=== PATIENT | female | born 1965 | race Caucasian/White ===

== ENCOUNTER 2019-05-02 02:03 | Emergency (ER) | payer OTHER ==
--- NOTE | 2019-05-02 02:27 | NUR ---
CAME OUT TO WAITING ROOM PT WAS INFORMING REGISTRATION THAT HER KNEE POPPED BACK INTO PLACE SPONTANEOUSLY AND THAT SHE WAS GOING HOME. WHEN THIS NURSE ASKED IF THE PT WAS CERTAIN ABOUT HER DECISION, AND ASKED IF THE PT WANTED TO BE EVALUATED TO BE CERTAIN HER KNEE WAS IN PLACE, THE PT REFUSED CARE AND LEFT THE ED WAITING ROOM AMBULATORY.
--- OUTSIDE RECORDS SUMMARY | 2019-05-02 17:01 | XMS REPORT | Continuity of Care Document ---
Author Organization Unknown Address Unknown Allergies Active Description Code Type Severity Reaction Onset Reported/Identified Relationship to Patient Clinical Status Yes Iodinated Contrast- Oral and IV Dye Iodinated Contrast- Oral and IV Dye Drug Allergy Unknown VOMITING 05/22/2018 Medications There is no data. Problems There is no data. Procedures There is no data. Results Test Result Range URINALYSIS, ROUTINE - 09/27/18 13:57 UA LEUKOCYTE ESTERASE DIPSTICK NEGATIVE NEGATIVE UA NITRITE DIPSTICK NEGATIVE NEGATIVE UA PROTEIN DIPSTICK NEGATIVE NEGATIVE UA GLUCOSE DIPSTICK NEGATIVE NEGATIVE UA KETONE DIPSTICK NEGATIVE NEGATIVE UA UROBILINOGEN DIPSTICK NORMAL NORMAL UA BILIRUBIN DIPSTICK NEGATIVE NEGATIVE UA BLOOD DIPSTICK NEGATIVE NEGATIVE UA SPECIFIC GRAVITY 1.015 1.015-1.025 UR PH 6.0 5.0-7.0 CBC W/DIFF - 09/27/18 14:11 BASOPHIL # 0.1 k/cumm 0.0-0.2 BASOPHIL % 0.8 % 0-1 EOSINOPHIL # 0.1 k/cumm 0.1-0.5 EOSINOPHIL % 1.6 % 2-4 GRANULOCYTE # 5.2 k/cumm 2.0-9.0 GRANULOCYTE % 70.2 % 50-75 LYMPHOCYTE # 1.6 k/cumm 1.0-4.0 LYMPHOCYTE % 21.1 % 20-30 MEAN CELL HGB 29.8 pg 27.0-33.0 MEAN CELL HGB CONCENTRATION 33.1 g/dL 32.0-37.0 MEAN CELL VOLUME 90.1 fl 80.0-100.0 MONOCYTE # 0.5 k/cumm 0.1-1.0 MONOCYTE % 6.0 % 4-6 MEAN PLATELET VOLUME 10.4 fl 8.5-10.9 RED BLOOD CELL 5.06 m/cumm 4.00-6.00 RED CELL DISTRIBUTION WIDTH 12.6 % 11.0-15.6 WHITE BLOOD CELL 7.5 k/cumm 5.0-10.0 HEMOGLOBIN 15.1 gm/dL 12.0-16.0 HEMATOCRIT 45.6 % 37.0-47.0 NRBC % 0.0 /100 WBC 0.0-0.0 PLATELET COUNT 215 k/cumm 150-400 IMMATURE GRANULOCYTE % 0.3 % 0.0-0.6 IMMATURE GRANULOCYTE # 0.02 k/cumm 0.00-0.09 METABOLIC PANEL, BASIC - 09/27/18 14:11 POTASSIUM 3.7 mmol/L 3.5-5.3 EST GFR (MDRD) > 60 mL/min > 59 ANION GAP 9 mmol/L 5-15 EST CrCl (CG) > 60 mL/min > 59 GLUCOSE 93 mg/dL 70-99 CALCIUM 9.4 mg/dL 8.5-10.1 BLOOD UREA NITROGEN 12 mg/dL 7-20 CREATININE 0.7 mg/dL 0.6-1.0 SODIUM 143 mmol/L 135-148 CHLORIDE 105 mmol/L 98-110 CARBON DIOXIDE 29 mmol/L 21-32 Radiology Report from [facility] on 09/27/2018 15:51:00 PATIENT NAME: MASSIEL CORTES UNIT NO: [id number] EXAMS: CPT CODE: [id number] CT ABD/PELVIS W/O CONTRAST 40095 REASON FOR EXAM: R flank pain TIME OF EXAM: 09/27/2018 3:10 PM COMPARISON: None TECHNIQUE: Routine helical noncontrast-enhanced CT images were obtained through the abdomen and pelvis. Postprocessed coronal and sagittal reformats were reviewed. FINDINGS: Included Lung Bases: There is no consolidation or acute abnormality. CT Abdomen: The liver, spleen, kidneys, adrenal glands, and pancreas all have a normal noncontrasted appearance. There is no mesenteric or retroperitoneal adenopathy. The appendix is not well seen, however, there is no inflammatory change in the region of the appendix to suggest appendicitis. The bowel loops are nondilated. There is no free fluid or free air. No focal bony abnormality is seen. CT Pelvis: Ureters and bladder are within normal limits. There is no free air, free fluid, loculated collection, or adenopathy in the pelvis. The soft tissue structures are age appropriate. Multilevel degenerative changes seen in the visualized spine. No focal aggressive bone lesion is seen. Calcific atherosclerosis of aorta without evidence of aneurysm. IMPRESSION: 1. No acute abnormality in the abdomen or pelvis. 2. No renal calculi or hydronephrosis bilaterally. I have personally reviewed these images and corrected the resident physician's interpretation if necessary. [facility] NAME: MASSIEL CORTES [address] HP: [phone] AGE: 53 S:[place] [address] : 1965 LOC: [facility] PHYS: Efrem Santana MD PHONE #: [phone] EXAM DATE: 09/27/2018 STATUS: REG ER FAX #: [phone] A#: [id number] U#: [id number] PAGE 1 Signed Report (CONTINUED) PATIENT NAME: MASSIEL CORTES UNIT NO: [id number] EXAMS: CPT CODE: [id number] CT ABD/PELVIS W/O CONTRAST 51092 <Continued> at 1546 RESIDENT: ELOY QUEEN MD Reported and signed by: REINA MELCHOR MD CC: TECHNOLOGIST: LUBNA ADHIKARI TRANSCRIBED DATE/Time: 09/27/2018 1546 BY: KRYSTA EXAM COMPLETE DATE/TIME: [id number] 1510 D/TM:09/27/2018 (1551) [facility] NAME: MASSIEL CORTES [address] HP: [phone] AGE: 53 S:[place] [address] : 1965 LOC: W[facility] PHYS: Efrem Santana MD PHONE #: [phone] EXAM DATE: 09/27/2018 STATUS: REG ER FAX #: [phone] A#: [id number] U#: [id number] PAGE 2 Signed Report *Final Page* Encounters ACCT No. Visit Date/Time Discharge Status Pt. Type Provider Facility Loc./Unit Complaint [id number] 09/27/2018 12:58:00 09/27/2018 16:34:00 DIS Emergency Efrem Gage MD [facility] [id number] 05/22/2018 19:38:00 Document Registration
== END 2019-05-02 02:27 | disposition left against medical advice (07) ==
LOC: ER 02:06
DX: S89.91XA Unspecified injury of right lower leg, initial encounter (principal); X58.XXXA Exposure to other specified factors, initial encounter

== ENCOUNTER 2019-06-08 09:07 | Emergency (ER) | payer SELFPAY ==
[~2019-06-08] VITALS: Ht 165.1 cm; Wt 56.7 kg
--- NOTE | 2019-06-08 09:50 | ED EENT ---
History of Present Illness General Chief Complaint: General Problems/Pain Stated Complaint: EAR, NOSE, THROAT PAIN Nursing Triage Note: Pt ambulates to RM 6 with complaints of a headache, ear pain and intermittent diarrhea/gas x 2 months. Pt reports "throat feels like closing" since this morning and a productive cough x 24 hrs. Pt reports taking OTC allergy medication this am. Pt states she feels short of breath from throat pain but denies any chest pain. Pt is A&O x 4 at this time. Source: patient Exam Limitations: no limitations (OLIVIA MAYER) History of Present Illness Date Seen by Provider: Jun 08, 2019 Time Seen by Provider: 09:30 Initial Comments Pt presents with headache, sinus pressure, ear pain, and throat swelling that started today it is associated with a cough that started last night. She has been having diarrhea intermittently for about 2 months since she moved in town from [place]. She states her house has been wet and thinks there is a mold infection the house. She states she took 2 diphenhydramine this morning but it did not help very much. She has chronic pain from previous injuries to her back and neck for which she take Aleve . She reports having a hysterectomy due to cervical cancer in 2003. Timing/Duration: this morning Location: ear (R), ear (L), throat, facial Prearrival Treatment: over the counter meds (Diphenhydramine, aleve) Modifying Factors: Worse With Coughing Associated Symptoms: cough; No fever; nasal congestion/drainage, sinus infection; No sore throat (OLIVIA MAYER) Initial Comments Here with report of sinus pressure and sore throat. She states she has a funny taste in her mouth like when she had Salmonella poisoning several years ago from chicken. She states that she just knows that she is sick and needs some high-powered antibiotics. Does complain of some bloating but no diarrhea. No other indications of Salmonella. Associated Symptoms: No fever; sinus infection, sore throat (HERO CARRASCO MD) Allergies and Home Medications Allergies Coded Allergies: sulfamethoxazole (Verified Allergy, Mild, 06/08/19) trimethoprim (Verified Allergy, Mild, 06/08/19) Iodinated Contrast- Oral and IV Dye (Verified Allergy, Unknown, 06/08/19) Sulfa (Sulfonamide Antibiotics) (Verified Allergy, Unknown, 06/08/19) Home Medications Naproxen Sodium 220 Mg Capsule, 220 MG PO for BREAKTHROUGH PAIN, (Reported) Patient Home Medication List Home Medication List Reviewed: Yes (HERO CARRASCO MD) Review of Systems Review of Systems Constitutional: No chills, No diaphoresis, No fever; weakness Eyes: Denies Blurred Vision, Denies Decreased Acuity Ears: Denies Dizziness; Pain Nose: congestion, clear discharge Mouth: no symptoms reported Throat: denies pain; swelling; denies neck stiffness, denies painful swallowing, denies difficulty with fluids Respiratory: cough, phlegm (Clear), short of breath Cardiovascular: no symptoms reported Gastrointestinal: No abdominal pain; diarrhea, nausea; No vomiting Musculoskeletal: see HPI Skin: no symptoms reported Neurological: Anxiety, Headache Hematologic/Lymphatic: No Symptoms Reported Immunological/Allergic: no symptoms reported (OLIVIA MAYER) Nose: congestion, clear discharge Respiratory: cough, phlegm (Clear) (HERO CARRASCO MD) All Other Systems Reviewed Negative Unless Noted: Yes (HERO CARRASCO MD) Past [id number] Hx Past Med/Social Hx: Reviewed Nursing Past Med/Soc Hx (HERO CARRASCO MD) Patient Social History Alcohol Use: Rarely Uses Recreational Drug Use: Yes (THC) Smoking Status: Current Everyday Smoker Type Used: Cigarettes 2nd Hand Smoke Exposure: No Recent Foreign Travel: No Contact w/Someone Who Travel: No Recent Infectious Disease Expo: No Recent Hopitalizations: No Physical Abuse: No Sexual Abuse: No Mistreated: No Fear: No (OLIVIA MAYER) Seasonal Allergies Seasonal Allergies: No (OLIVIA MAYER) Past Medical History Surgeries: Yes Hysterectomy, Orthopedic, Tonsillectomy, Tubal Ligation Respiratory: No Cardiac: No Neurological: No 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 oz. 56.301454qi; BMI Method:Stated General Appearance: WD/WN, moderate distress Eyes: bilateral eye normal inspection, bilateral eye PERRL, bilateral eye EOMI Ears: bilateral ear auricle normal, bilateral ear canal normal, bilateral ear tenderness, bilateral ear TM dull Nose: normal inspection Mouth/Throat: normal mouth inspection, pharynx normal Neck: full range of motion, normal inspection Cardiovascular: regular rate, rhythm, no edema, no JVD, no murmur Respiratory: lungs clear, normal breath sounds, no respiratory distress, no accessory muscle use Gastrointestinal: normal bowel sounds, non tender, no organomegaly, no pulsatile mass Neurologic/Psychiatric: no motor/sensory deficits, alert, normal mood/affect, oriented x 3 Skin: normal color, warm/dry (OLIVIA MAYER) General Appearance: WD/WN, moderate distress (quite anxious) Mouth/Throat: normal mouth inspection, other (mild pharyngeal erythema) Neck: full range of motion, supple, normal inspection Cardiovascular: regular rate, rhythm, no edema Respiratory: lungs clear, normal breath sounds Gastrointestinal: non tender, soft, no organomegaly Neurologic/Psychiatric: alert, oriented x 3 Skin: normal color, warm/dry (HERO CARRASCO MD) Progress/Results/Core Measures Results/Orders Lab Results Laboratory Tests Test 06/08/19 09:40 06/08/19 10:16 Range/Units Urine Color YELLOW Urine Clarity CLEAR Urine pH 6 5-9 Urine Specific [place] 1.005 L 1.016-1.022 Urine Protein NEGATIVE NEGATIVE Urine Glucose (UA) NEGATIVE NEGATIVE Urine Ketones NEGATIVE NEGATIVE Urine Nitrite NEGATIVE NEGATIVE Urine Bilirubin NEGATIVE NEGATIVE Urine Urobilinogen NORMAL NORMAL MG/DL Urine Leukocyte Esterase NEGATIVE NEGATIVE Urine RBC (Auto) NEGATIVE NEGATIVE Urine RBC NONE /HPF Urine WBC NONE /HPF Urine Squamous Epithelial Cells 5-10 /HPF Urine Crystals NONE /LPF Urine Bacteria TRACE /HPF Urine Casts NONE /LPF Urine Mucus NEGATIVE /LPF Urine Culture Indicated NO Urine Opiates Screen NEGATIVE NEGATIVE Urine Oxycodone Screen NEGATIVE NEGATIVE Urine Methadone Screen NEGATIVE NEGATIVE Urine Propoxyphene Screen NEGATIVE NEGATIVE Urine Barbiturates Screen NEGATIVE NEGATIVE Ur Tricyclic Antidepressants Screen NEGATIVE NEGATIVE Urine Phencyclidine Screen NEGATIVE NEGATIVE Urine Amphetamines Screen NEGATIVE NEGATIVE Urine Methamphetamines Screen NEGATIVE NEGATIVE Urine Benzodiazepines Screen POSITIVE H NEGATIVE Urine Cocaine Screen NEGATIVE NEGATIVE Urine Cannabinoids Screen NEGATIVE NEGATIVE White Blood Count 7.1 4.3-11.0 10^3/uL Red Blood Count 4.55 4.35-5.85 10^6/uL Hemoglobin 13.9 11.5-16.0 G/DL Hematocrit 40 35-52 % Mean Corpuscular Volume 88 80-99 FL Mean Corpuscular Hemoglobin 31 25-34 PG Mean Corpuscular Hemoglobin Concent 35 32-36 G/DL Red Cell Distribution Width 12.9 10.0-14.5 % Platelet Count 174 130-400 10^3/uL Mean Platelet Volume 10.3 7.4-10.4 FL Neutrophils (%) (Auto) 70 42-75 % Lymphocytes (%) (Auto) 21 12-44 % Monocytes (%) (Auto) 6 0-12 % Eosinophils (%) (Auto) 2 0-10 % Basophils (%) (Auto) 1 0-10 % Neutrophils # (Auto) 5.0 1.8-7.8 X 10^3 Lymphocytes # (Auto) 1.5 1.0-4.0 X 10^3 Monocytes # (Auto) 0.4 0.0-1.0 X 10^3 Eosinophils # (Auto) 0.2 0.0-0.3 10^3/uL Basophils # (Auto) 0.1 0.0-0.1 10^3/uL Sodium Level 140 135-145 MMOL/L Potassium Level 3.8 3.6-5.0 MMOL/L Chloride Level 107 98-107 MMOL/L Carbon Dioxide Level 27 21-32 MMOL/L Anion Gap 6 5-14 MMOL/L Blood Urea Nitrogen 12 7-18 MG/DL Creatinine 0.80 0.60-1.30 MG/DL Estimat Glomerular Filtration Rate > 60 BUN/Creatinine Ratio 15 Glucose Level 112 H 70-105 MG/DL Calcium Level 9.3 8.5-10.1 MG/DL Corrected Calcium 9.1 8.5-10.1 MG/DL Total Bilirubin 0.5 0.1-1.0 MG/DL Aspartate Amino Transf (AST/SGOT) 24 5-34 U/L Alanine Aminotransferase (ALT/SGPT) 23 0-55 U/L Alkaline Phosphatase 83 40-136 U/L C-Reactive Protein High Sensitivity 0.08 0.00-0.50 MG/DL Total Protein 6.9 6.4-8.2 GM/DL Albumin 4.2 3.2-4.5 GM/DL (HERO CARRASCO MD) My Orders Orders - HERO CARRASCO MD Cbc With Automated Diff (06/08/19 10:01) Comprehensive Metabolic Panel (06/08/19 10:01) Hs C Reactive Protein (06/08/19 10:01) Drug Screen Stat (Urine) (06/08/19 10:01) Ua Culture If Indicated (06/08/19 10:01) (HERO CARRASCO MD) Vital Signs/I&O 06/08/19 09:29 Temp 97.1 Pulse 66 Resp 20 B/P (MAP) 204/104 (137) Pulse Ox 100 O2 Delivery Room Air (HERO CARRASCO MD) Blood Pressure Mean: 137 Progress Progress Note : Time: 09:35 Progress Note Pt seen by me. She presents with a headache, ear pain, and throat tightness that started this morning. She states having been feeling sick for 2 months with intermittent diarrhea. Her TM were dull and yellow upon inspection. Suspected OM and sinus infection. Spoke with Dr. Carrasco about the patient. (OLIVIA MAYER) Progress Note : Progress Note I have seen and evaluated the patient and agree with above except as indicated. Have directed the plan of care. Patient initially resistant to labs. Due to multiple presenting complaints, she has allowed for laboratory evaluation. CBC, CMP, UA and UDS ordered. Monitor patient. 1125: No acute findings. We will go ahead and treat for upper respiratory infection with azithromycin. Labs reviewed with the patient. She denies taking any other medicines except for Benadryl and Aleve. She does not admit to benzodiazepines. Discharged home with return precautions. Patient verbalize understanding instructions and agreement with plan. (HERO CARRASCO MD) Departure Impression Primary Impression: Upper respiratory infection, acute Disposition: HOME, SELF-CARE Condition: Stable Departure-Patient Inst. Decision time for Depature: 11:28 (HERO CARRASCO MD) Referrals: NO,LOCAL PHYSICIAN (PCP) Primary Care Physician Patient Instructions: Urinary Tract Infection, Adult (DC) Add. Discharge Instructions: All discharge instructions reviewed with patient and/or family. Voiced u nderstanding. Take medications as directed. You may use Benadryl/diphenhydramine 25 mg every 6 hours as needed for allergy symptoms although this will cause mouth drying. Drink plenty of fluids. Follow-up with your Dr. in a few days for recheck. Return for worse pain, fever, vomiting, weakness, breathing problems or other concerns as needed. Scripts Azithromycin (Azithromycin) 250 Mg Tablet 250 MG PO UD, #6 TAB TAKE 2 TABLETS ON DAY ONE THEN TAKE 1 TABLET DAILY FOR FOUR MORE DAYS Prov: HERO CARRASCO MD 06/08/19 Work/School Note: Local Medical Staff Listing [facility] Jun 08, 2019 09:50 HERO CARRASCO MD Jun 08, 2019 11:25
[2019-06-08 10:11] LABS: BILIRUBIN,URINE NEGATIVE (NEGATIVE); CLARITY,URINE CLEAR; COLOR,URINE YELLOW; GLUCOSE, URINE (UA) NEGATIVE (NEGATIVE); KETONES,URINE NEGATIVE (NEGATIVE); LEUKOCYTE ESTERASE ,URINE NEGATIVE (NEGATIVE); NITRITE,URINE NEGATIVE (NEGATIVE); PH,URINE 6 (5-9); PROTEIN,URINE NEGATIVE (NEGATIVE); UROBILINOGEN,URINE NORMAL (NORMAL)
[2019-06-08 10:21] LABS: BACTERIA,URINE TRACE /HPF
[2019-06-08 10:30] LABS: BASOPHILS # (AUTO) 0.1 10^3/uL (0.0-0.1); BASOPHILS % (AUTO) 1 % (0-10); EOSINOPHILS # (AUTO) 0.2 10^3/uL (0.0-0.3); EOSINOPHILS % (AUTO) 2 % (0-10); HEMATOCRIT 40 % (35-52); HEMOGLOBIN 13.9 G/DL (11.5-16.0); LYMPHOCYTES # (AUTO) 1.5 X 10^3 (1.0-4.0); LYMPHOCYTES % (AUTO) 21 % (12-44); MEAN CORPUSCULAR HEMOGLOBIN 31 PG (25-34); MEAN CORPUSCULAR HGB CONC 35 G/DL (32-36); MEAN CORPUSCULAR VOLUME 88 FL (80-99); MEAN PLATELET VOLUME 10.3 FL (7.4-10.4); MONOCYTES # (AUTO) 0.4 X 10^3 (0.0-1.0); MONOCYTES % (AUTO) 6 % (0-12); NEUTROPHILS % (AUTO) 70 % (42-75); PLATELET COUNT 174 10^3/uL (130-400); RED CELL DISTRIBUTION WIDTH 12.9 % (10.0-14.5); WHITE BLOOD COUNT 7.1 10^3/uL (4.3-11.0)
[2019-06-08 10:32] LABS: AMPHETAMINE SCREEN, URINE NEGATIVE (NEGATIVE); BARBITURATE SCREEN URINE NEGATIVE (NEGATIVE); BENZODIAZEPINES SCREEN URINE POSITIVE (NEGATIVE); CANNABINOID SCREEN, URINE NEGATIVE (NEGATIVE); COCAINE SCREEN URINE NEGATIVE (NEGATIVE); METHADONE STAT NEGATIVE (NEGATIVE); METHAMPHETAMINE SCREEN URINE S NEGATIVE (NEGATIVE); OPIATE SCREEN URINE NEGATIVE (NEGATIVE); OXYCODONE STAT NEGATIVE (NEGATIVE); PROPOXYPHENE STAT NEGATIVE (NEGATIVE); TRICYCLIC ANTIDEPRESSANTS SCRE NEGATIVE (NEGATIVE)
[2019-06-08] MEDS ORDERED: NAPR220C11 PO (10:48)
[2019-06-08 10:59] LABS: ALANINE AMINOTRANSFERASE 23 U/L (0-55); ALBUMIN 4.2 GM/DL (3.2-4.5); ALKALINE PHOSPHATASE 83 U/L (40-136); BILIRUBIN,TOTAL 0.5 MG/DL (0.1-1.0); BUN/CREATININE RATIO 15; CALCIUM 9.3 MG/DL (8.5-10.1); CARBON DIOXIDE 27 MMOL/L (21-32); CHLORIDE 107 MMOL/L (98-107); GFR ESTIMATED > 60; GLUCOSE 112 MG/DL (70-105); POTASSIUM 3.8 MMOL/L (3.6-5.0); SODIUM 140 MMOL/L (135-145); TOTAL PROTEIN 6.9 GM/DL (6.4-8.2)
[2019-06-08] MEDS ORDERED: AZIT250T12 PO (11:29)
[2019-06-08 11:40] VITALS: BP 144/84
== END 2019-06-08 11:40 | disposition home or self-care (01) ==
LOC: EDUNIT# 09:07 → ER 09:08
DX: J06.9 Acute upper respiratory infection, unspecified (principal); F41.9 Anxiety disorder, unspecified; F17.210 Nicotine dependence, cigarettes, uncomplicated; Z88.2 Allergy status to sulfonamides; Z88.1 Allergy status to other antibiotic agents; Z91.041 Radiographic dye allergy status; Z90.710 Acquired absence of both cervix and uterus; Z90.89 Acquired absence of other organs; Z98.51 Tubal ligation status; Z85.41 Personal history of malignant neoplasm of cervix uteri
CPT/HCPCS: 36415; 80053; 80306; 81000; 85025; 86141

== ENCOUNTER 2019-06-17 14:40 | Emergency (ER) | payer SELFPAY ==
[~2019-06-17] VITALS: Ht 165.1 cm; Wt 51.3 kg
[~2019-06-17 14:40] MED LIST: AZIT250T12 PO; NAPR220C11 PO
--- NOTE | 2019-06-17 15:13 | ED General ---
General Chief Complaint: General Problems/Pain Stated Complaint: TROUBLE WALKING Nursing Triage Note: PATIENT STATES THAT SHE HAS BEEN SICK FOR 2 MONTHS. SHE STATES THAT SHE "LIVES IN A [place]" AND IS INFECTED WITH BACTERIA THAT IS AFFECTING HER BREATHING AND ABILITY TO MOVE. Nursing Sepsis Screen: Possible Sepsis Risk Source of Information: Patient Exam Limitations: No Limitations History of Present Illness Date Seen by Provider: Jun 17, 2019 Time Seen by Provider: 15:12 Initial Comments To ER with bilateral knee pain. She states that she is infected with black mold that is affecting her knees. She also has a cough. She states she needs some high-powered antibiotics. Timing/Duration: Other Severity: Moderate Associated Systoms: Denies Symptoms Allergies and Home Medications Allergies Coded Allergies: sulfamethoxazole (Verified Allergy, Mild, 06/08/19) trimethoprim (Verified Allergy, Mild, 06/08/19) Iodinated Contrast- Oral and IV Dye (Verified Allergy, Unknown, 06/08/19) Sulfa (Sulfonamide Antibiotics) (Verified Allergy, Unknown, 06/08/19) Home Medications Azithromycin 250 Mg Tablet, 250 MG PO UD TAKE 2 TABLETS ON DAY ONE THEN TAKE 1 TABLET DAILY FOR FOUR MORE DAYS Prescribed by: HERO HAYS on 06/08/19 1129 Cephalexin 500 Mg Capsule, 500 MG PO TID Prescribed by: MARIA M CARR on 06/17/19 1542 Naproxen 500 Mg Tablet, 500 MG PO BID PRN for PAIN-SEVERE Prescribed by: MARIA M CARR on 06/17/19 1541 Naproxen Sodium 220 Mg Capsule, 220 MG PO for BREAKTHROUGH PAIN, (Reported) Patient Home Medication List Home Medication List Reviewed: Yes Review of Systems Review of Systems Constitutional: see HPI EENTM: see HPI Respiratory: no symptoms reported Cardiovascular: no symptoms reported Genitourinary: no symptoms reported Musculoskeletal: see HPI Skin: no symptoms reported Psychiatric/Neurological: See HPI Past Bvaycew-Dthgal-Pgscfy Hx Patient Social History Alcohol Use: Occasionally Uses Recreational Drug Use: Yes (MARIJUANA) Smoking Status: Current Everyday Smoker Type Used: Cigarettes 2nd Hand Smoke Exposure: No Recent Foreign Travel: No Contact w/Someone Who Travel: No Recent Infectious Disease Expo: No Recent Hopitalizations: No Seasonal Allergies Seasonal Allergies: No Past Medical History Surgeries: Yes Hysterectomy, Orthopedic, Tonsillectomy, Tubal Ligation Respiratory: No Cardiac: No 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 0oz. [id number]; BMI Method:Stated General Appearance: WD/WN, Anxious, Other (tearful, speaks loudly and at a high rate of speed. She is either manic or under the influence of a stimulant.) Eyes: Bilateral Eye Normal Inspection, Bilateral Eye PERRL, Bilateral Eye EOMI HEENT: PERRL/EOMI, TMs Normal Neck: Full Range of Motion, Normal Inspection Respiratory: Normal Breath Sounds, No Accessory Muscle Use, No Respiratory Distress Cardiovascular: Regular Rate, Rhythm, Normal Peripheral Pulses Gastrointestinal: Normal Bowel Sounds, Non Tender, Soft Extremity: Normal Capillary Refill, Normal Inspection Neurologic/Psychiatric: Alert, Oriented x3 Skin: Normal Color, Warm/Dry Progress/Results/Core Measures Suspected Sepsis Recent Fever Within 48 Hours: No Infection Criteria Present: Suspected New Infection New/Unexplained Altered Menta: No Sepsis Screen: Possible Sepsis Risk SIRS Temperature:98.2 Pulse: 103 Respiratory Rate: 26 Laboratory Tests 06/17/19 15:25: White Blood Count 13.1H Blood Pressure 146 /117 Mean: 127 Laboratory Tests 06/17/19 15:25: Creatinine 1.04, Platelet Count 246, Total Bilirubin 0.5 Results/Orders Lab Results Laboratory Tests Test 06/17/19 15:15 06/17/19 15:25 Range/Units Urine Color YELLOW Urine Clarity CLEAR Urine pH 7 5-9 Urine Specific [place] 1.005 L 1.016-1.022 Urine Protein NEGATIVE NEGATIVE Urine Glucose (UA) NEGATIVE NEGATIVE Urine Ketones NEGATIVE NEGATIVE Urine Nitrite NEGATIVE NEGATIVE Urine Bilirubin NEGATIVE NEGATIVE Urine Urobilinogen NORMAL NORMAL MG/DL Urine Leukocyte Esterase NEGATIVE NEGATIVE Urine RBC (Auto) NEGATIVE NEGATIVE Urine RBC RARE /HPF Urine WBC 0-2 /HPF Urine Crystals NONE /LPF Urine Bacteria NEGATIVE /HPF Urine Casts NONE /LPF Urine Mucus NEGATIVE /LPF Urine Culture Indicated NO Urine Opiates Screen NEGATIVE NEGATIVE Urine Oxycodone Screen NEGATIVE NEGATIVE Urine Methadone Screen NEGATIVE NEGATIVE Urine Propoxyphene Screen NEGATIVE NEGATIVE Urine Barbiturates Screen NEGATIVE NEGATIVE Ur Tricyclic Antidepressants Screen NEGATIVE NEGATIVE Urine Phencyclidine Screen NEGATIVE NEGATIVE Urine Amphetamines Screen NEGATIVE NEGATIVE Urine Methamphetamines Screen NEGATIVE NEGATIVE Urine Benzodiazepines Screen NEGATIVE NEGATIVE Urine Cocaine Screen NEGATIVE NEGATIVE Urine Cannabinoids Screen NEGATIVE NEGATIVE White Blood Count 13.1 H 4.3-11.0 10^3/uL Red Blood Count 4.49 4.35-5.85 10^6/uL Hemoglobin 13.8 11.5-16.0 G/DL Hematocrit 40 35-52 % Mean Corpuscular Volume 88 80-99 FL Mean Corpuscular Hemoglobin 31 25-34 PG Mean Corpuscular Hemoglobin Concent 35 32-36 G/DL Red Cell Distribution Width 13.3 10.0-14.5 % Platelet Count 246 130-400 10^3/uL Mean Platelet Volume 9.9 7.4-10.4 FL Neutrophils (%) (Auto) 68 42-75 % Lymphocytes (%) (Auto) 24 12-44 % Monocytes (%) (Auto) 8 0-12 % Eosinophils (%) (Auto) 0 0-10 % Basophils (%) (Auto) 0 0-10 % Neutrophils # (Auto) 8.9 H 1.8-7.8 X 10^3 Lymphocytes # (Auto) 3.1 1.0-4.0 X 10^3 Monocytes # (Auto) 1.0 0.0-1.0 X 10^3 Eosinophils # (Auto) 0.0 0.0-0.3 10^3/uL Basophils # (Auto) 0.0 0.0-0.1 10^3/uL Erythrocyte Sedimentation Rate 1 0-30 MM/HR Sodium Level 139 135-145 MMOL/L Potassium Level 3.0 L 3.6-5.0 MMOL/L Chloride Level 102 98-107 MMOL/L Carbon Dioxide Level 27 21-32 MMOL/L Anion Gap 10 5-14 MMOL/L Blood Urea Nitrogen 26 H 7-18 MG/DL Creatinine 1.04 0.60-1.30 MG/DL Estimat Glomerular Filtration Rate 55 BUN/Creatinine Ratio 25 Glucose Level 86 70-105 MG/DL Calcium Level 8.8 8.5-10.1 MG/DL Corrected Calcium 8.6 8.5-10.1 MG/DL Total Bilirubin 0.5 0.1-1.0 MG/DL Aspartate Amino Transf (AST/SGOT) 27 5-34 U/L Alanine Aminotransferase (ALT/SGPT) 25 0-55 U/L Alkaline Phosphatase 94 40-136 U/L C-Reactive Protein High Sensitivity 0.08 0.00-0.50 MG/DL Total Protein 7.1 6.4-8.2 GM/DL Albumin 4.3 3.2-4.5 GM/DL My Orders Orders - MARIA M CARR APRN Ua Culture If Indicated (06/17/19 15:10) Drug Screen Stat (Urine) (06/17/19 15:10) Cbc With Automated Diff (06/17/19 15:10) Erythrocyte Sedimentation Rate (06/17/19 15:10) Hs C Reactive Protein (06/17/19 15:10) Comprehensive Metabolic Panel (06/17/19 15:10) Olanzapine Orally Dissolve Tab (Zyprexa (06/17/19 15:15) Ibuprofen Tablet (Motrin Tablet) (06/17/19 15:15) Medications Given in ED Current Medications Medications Dose Ordered Sig/Luke Route Start Time Stop Time Status Last Admin Dose Admin Olanzapine 10 mg ONCE ONCE PO 06/17/19 15:15 06/17/19 15:16 DC 06/17/19 15:20 10 MG Vital Signs/I&O 06/17/19 14:54 Temp 98.2 Pulse 103 Resp 26 B/P (MAP) 146/117 (127) Pulse Ox 94 Capillary Refill : Less Than 3 Seconds Blood Pressure Mean: 127 Departure Impression Primary Impression: Joint pain Qualified Codes: M25.50 - Pain in unspecified joint Disposition: 01 HOME, SELF-CARE Condition: Stable Departure-Patient Inst. Decision time for Depature: 15:39 Referrals: NO,LOCAL PHYSICIAN (PCP) Primary Care Physician GONZALO PARISI DO Patient Instructions: Joint Pain Add. Discharge Instructions: 1. Call Dr. Parisi to make an appointment to be seen for follow-up. Return to ER for any concerns. All discharge instructions reviewed with patient and/or family. Voiced understanding. Scripts Potassium Chloride (Potassium Chloride) 20 Meq Tablet.er 40 MEQ PO DAILY, #6 TAB Prov: MARIA M CARR APRN 06/17/19 Cephalexin (Keflex) 500 Mg Capsule 500 MG PO TID, #21 CAP Prov: MARIA M CARR APRN 06/17/19 Naproxen (Naprosyn) 500 Mg Tablet 500 MG PO BID PRN for PAIN-SEVERE, #30 TAB 0 Refills Prov: MARIA M CARR APRN 06/17/19 MARIA M CARR APRN Jun 17, 2019 15:13
[2019-06-17] MEDS ORDERED: OLANZapine 5 MG ODT (ZyPREXA ZYDIS) PO ONE (15:15)
[2019-06-17] MEDS ORDERED: IBUPROFEN 800 MG (MOTRIN) TAB PO ONE (15:15)
[2019-06-17 15:23] LABS: BILIRUBIN,URINE NEGATIVE (NEGATIVE); CLARITY,URINE CLEAR; COLOR,URINE YELLOW; GLUCOSE, URINE (UA) NEGATIVE (NEGATIVE); KETONES,URINE NEGATIVE (NEGATIVE); LEUKOCYTE ESTERASE ,URINE NEGATIVE (NEGATIVE); NITRITE,URINE NEGATIVE (NEGATIVE); PH,URINE 7 (5-9); PROTEIN,URINE NEGATIVE (NEGATIVE); UROBILINOGEN,URINE NORMAL (NORMAL)
[2019-06-17 15:31] LABS: BASOPHILS % (AUTO) 0 % (0-10); EOSINOPHILS % (AUTO) 0 % (0-10); HEMATOCRIT 40 % (35-52); HEMOGLOBIN 13.8 G/DL (11.5-16.0); LYMPHOCYTES # (AUTO) 3.1 X 10^3 (1.0-4.0); LYMPHOCYTES % (AUTO) 24 % (12-44); MEAN CORPUSCULAR HEMOGLOBIN 31 PG (25-34); MEAN CORPUSCULAR HGB CONC 35 G/DL (32-36); MEAN CORPUSCULAR VOLUME 88 FL (80-99); MEAN PLATELET VOLUME 9.9 FL (7.4-10.4); MONOCYTES % (AUTO) 8 % (0-12); NEUTROPHILS # (AUTO) 8.9 X 10^3 (1.8-7.8); NEUTROPHILS % (AUTO) 68 % (42-75); PLATELET COUNT 246 10^3/uL (130-400); RED CELL DISTRIBUTION WIDTH 13.3 % (10.0-14.5); WHITE BLOOD COUNT 13.1 10^3/uL (4.3-11.0)
[2019-06-17 15:34] LABS: RBC,URINE RARE /HPF; WBC,URINE 0-2 /HPF
[2019-06-17 15:35] LABS: BACTERIA,URINE NEGATIVE /HPF
[2019-06-17 15:38] LABS: AMPHETAMINE SCREEN, URINE NEGATIVE (NEGATIVE); BARBITURATE SCREEN URINE NEGATIVE (NEGATIVE); BENZODIAZEPINES SCREEN URINE NEGATIVE (NEGATIVE); CANNABINOID SCREEN, URINE NEGATIVE (NEGATIVE); COCAINE SCREEN URINE NEGATIVE (NEGATIVE); METHADONE STAT NEGATIVE (NEGATIVE); METHAMPHETAMINE SCREEN URINE S NEGATIVE (NEGATIVE); OPIATE SCREEN URINE NEGATIVE (NEGATIVE); OXYCODONE STAT NEGATIVE (NEGATIVE); PROPOXYPHENE STAT NEGATIVE (NEGATIVE); TRICYCLIC ANTIDEPRESSANTS SCRE NEGATIVE (NEGATIVE)
[2019-06-17] MEDS ORDERED: NAPR-1071 PO (15:41)
[2019-06-17] MEDS ORDERED: CEPH-507 PO (15:42)
[2019-06-17 15:51] LABS: ALBUMIN 4.3 GM/DL (3.2-4.5); BILIRUBIN,TOTAL 0.5 MG/DL (0.1-1.0); CALCIUM 8.8 MG/DL (8.5-10.1); CREATININE SERUM 1.04 MG/DL (0.60-1.30); TOTAL PROTEIN 7.1 GM/DL (6.4-8.2)
[2019-06-17 15:56] LABS: ERYTHROCYTE SEDIMENTATION RATE 1 MM/HR (0-30)
[2019-06-17] MEDS ORDERED: POTA-51 PO (16:01)
[2019-06-17 16:03] VITALS: BP 146/117
== END 2019-06-17 16:03 | disposition home or self-care (01) ==
LOC: EDUNIT# 14:40 → ER 14:42
DX: M25.561 Pain in right knee (principal); M25.562 Pain in left knee; F41.9 Anxiety disorder, unspecified; F17.210 Nicotine dependence, cigarettes, uncomplicated; Z85.41 Personal history of malignant neoplasm of cervix uteri; Z98.51 Tubal ligation status; Z90.710 Acquired absence of both cervix and uterus; Z90.89 Acquired absence of other organs; Z88.2 Allergy status to sulfonamides; Z88.1 Allergy status to other antibiotic agents; Z91.041 Radiographic dye allergy status
CPT/HCPCS: 36415; 80053; 80306; 81000; 85025; 85652; 86141; 99282

== ENCOUNTER → 2019-09-20 | Outpatient (CLI) | payer OTHER ==
[~2019-09-20] MED LIST changes: +CEPH-507 PO; +NAPR-1071 PO; +POTA-51 PO
== END ==
LOC: RAD 12:47
PROVIDERS: ATTEND Nurse Practitioner Family
DX: Z12.31 Encounter for screening mammogram for malignant neoplasm of breast (principal)
CPT/HCPCS: 77067

== ENCOUNTER → 2019-12-26 | Outpatient (CLI) | payer SELFPAY | END | disposition home or self-care (01) | LOC: PREOP 05:52 | PROVIDERS: ATTEND Surgery | DX: Z01.818 Encounter for other preprocedural examination (principal) ==

== ENCOUNTER 2020-10-25 05:28 | Outpatient (RCR) | payer OTHER ==
[~2020-10-25] VITALS: Ht 165 cm; Wt 58.0 kg
[~2020-10-25 05:28] MED LIST changes: +GABA-486 PO; +GABA300S2 PO; +LORA0.5P MC
== END 2020-10-26 09:27 | disposition home or self-care (01) ==
LOC: PREOP 05:28
PROVIDERS: ATTEND Surgery
DX: Z01.812 Encounter for preprocedural laboratory examination (principal); K21.9 Gastro-esophageal reflux disease without esophagitis; R19.5 Other fecal abnormalities; Z20.822 Contact with and (suspected) exposure to COVID-19
CPT/HCPCS: 87635

== ENCOUNTER 2020-10-29 09:33 | Day surgery (SDC) | payer OTHER ==
[2020-10-29] VITALS (8 sets, daily range): BP systolic 103–140; BP diastolic 58–109
[~2020-10-29] VITALS: Ht 165 cm; Wt 58.0 kg
[2020-10-29] MEDS ORDERED: LACTATED RINGERS 1,000 ML IV ONE (09:49)
[2020-10-29] MEDS ORDERED: LACTATED RINGERS 1,000 ML IV PRN (10:00)
[2020-10-29] MEDS ORDERED: HURRICAINE EXT TUBE (BENZOCAINE) XX PRN (10:00)
[2020-10-29] MEDS ORDERED: PROPOFOL INJECTION 50 ML IV ONE ×2 (10:02→10:33)
[2020-10-29] MEDS ORDERED: MIDAZOLAM 2 MG/2 ML (VERSED) VIAL ONE (10:03)
--- NOTE | 2020-10-29 10:20 | Progress Note-Pre Operative ---
Pre-Operative Progress Note H&P Reviewed The H&P was reviewed, patient examined and no changes noted. Time Seen by Provider: 10:19 Date H&P Reviewed: Oct 29, 2020 Time H&P Reviewed: : Pre-Operative Diagnosis: Hematochezia, Gastritis CYNTHIA ALBERTO DO Oct 29, 2020 10:20
--- NOTE | 2020-10-29 11:28 | Progress Note-Post Operative ---
Post-Operative Progess Note Surgeon (s)/Slot Service Specialist (s) Surgeon CYNTHIA ALBERTO DO Slot Service Specialist: SYLVESTER [place] Pre-Operative Diagnosis Hematochezia, Gastritis Post-Operative Diagnosis Gastritis Diverticula Int hemorrhoids colitis due to prep Procedure & Operative Findings Date of Procedure 10/29/20 Procedure Performed/Findings EGD with bx Colon Anesthesia Type IV sedation by CUSTOMER SERVICE LEADER Estimated Blood Loss Estimated blood loss (mL): scant Specimens/Packing Specimens Removed antral bx body of stomach GE jxn CYNTHIA ALBERTO DO Oct 29, 2020 11:28
--- NOTE | 2020-10-29 11:30 | Endoscopy Discharge Instruct ---
Endo Procedure/Findings Findings 1.: Gastritis 2.: Diverticulosis 3.: Internal Hemorrhoids Discharge Instructions - Activity: You might feel a little sleepy until tomorrow. This is due to the medicine you received to relax you. Until tomorrow, you should: NOT drive a car, operate machinery or power tools. NOT drink any alcoholic beverages. NOT make any important decisions or sign importortant papers. Do not return to work until tomorrow, unless otherwise instructed. Resume previous activities tomorrow. Diet: Start by taking liquids. If you tolerate liquids, advance to solid food. 1.: EGD in 1 year 2.: Colonscopy in 10 years Notify Physician - If you experience excessive bleeding, unusual abdominal pain, fever, or chest pain, contact your doctor immediately. CYNTHIA ALBERTO DO Oct 29, 2020 11:30
--- NOTE | 2020-10-29 11:58 | Anesthesia-General Post-Op ---
MAC Patient Condition Mental Status/LOC: Same as Preop Cardiovascular: Satisfactory Nausea/Vomiting: Absent Respiratory: Satisfactory Pain: Controlled Complications: Absent Post Op Complications Complications None Follow Up Care/Instructions Patient Instructions None needed. Anesthesiology Discharge Order Discharge Order Patient is doing well, no complaints, stable vital signs, no apparent adverse anesthesia problems. No complications reported per nursing. JACKLYN PAYTON CRNA Oct 29, 2020 11:58
--- NOTE | 2020-10-29 23:53 | OPERATIVE REPORT ---
DATE OF SERVICE: PREOPERATIVE DIAGNOSES: Gastritis, hematochezia. POSTOPERATIVE DIAGNOSES: Gastritis, internal hemorrhoids, diverticula and some colitis, most likely due to prep, and hiatal hernia. PROCEDURES: 1. EGD with biopsy. 2. Colonoscopy. SURGEON: Sushil Samaniego DO. FIRST ASSISTANTS: D[place]TON [place]. SPECIMEN: Biopsy of the antrum, biopsy from the body of stomach. BLOOD LOSS: Scant. FLUIDS: Per anesthesia. POSTOPERATIVE CONDITION: Stable. INDICATION FOR PROCEDURE: The patient is a 55-year-old female who has been having some hematochezia. She also had some gastritis and needed upper and lower endoscopy. FINDINGS: The patient had some mild gastritis. GE junction looked great. No changes. She had some small diverticula. She also had some internal hemorrhoids and what looked like a very mild colitis, probably secondary to the prep. PROCEDURE NOTE: After informed consent was obtained, the patient was brought to the endoscopy suite, placed in bed in left lateral decubitus position. She was administered IV sedation by the GOLF PROFESSIONAL who then monitored her vitals the entire time, heart rate, blood pressure and pulse ox. Started with the EGD, placed the scope down the mouth through the esophagus into the stomach. Saw some mild gastritis of the antrum, took a picture, pushed it into the duodenum. Duodenum looked fine, pulled back, did a biopsy of the antrum and then retroflexed the scope, saw hiatal hernia, took a picture of this. Did a biopsy of the body of stomach and then pulled the scope into the GE junction. The patient had a very nice GE junction well delineated, demarcated between the esophagus and stomach. No changes. there was lot of acid reflux. At this point, I then pushed the scope back into the stomach, suctioned all the air out and then pulled the scope up the esophagus and out the mouth. Switched camera, switched gloves, went down below, started the colonoscopy, pushed all the way into about [address] in, noted what looked like a little bit of colitis, took a picture of this. This looked like prep artifact. Elected not to do a biopsy. Saw some beginnings of small diverticula, able to push all the way to the cecum, took a picture of appendiceal orifice, noted the ileocecal valve and then slowly withdrew the scope, insufflating to look circumferentially at thompson looking at the cecum, up the ascending colon to the hepatic flexure, then down the transverse colon, the splenic flexure, into the descending colon and then down into the sigmoid and finally into the rectum. Retroflexed in the rectal vault, saw some grade I internal hemorrhoids. No other obvious pathology. Scope was removed. The patient tolerated the procedure, recovered in endoscopy suite. Job ID: [id number] DocumentID: [id number] Dictated Date: 10/29/2020 20:07:07 Clinical Field Specialist Date: 10/29/2020 23:52:25 Dictated By: SUSHIL SAMANIEGO DO
== END 2020-10-29 12:00 | disposition home or self-care (01) ==
LOC: ENDO 09:33
PROVIDERS: ATTEND Surgery
DX: K64.8 Other hemorrhoids (principal); K57.30 Diverticulosis of large intestine without perforation or abscess without bleeding; K52.9 Noninfective gastroenteritis and colitis, unspecified; K29.50 Unspecified chronic gastritis without bleeding; K44.9 Diaphragmatic hernia without obstruction or gangrene; K92.1 Melena; K21.9 Gastro-esophageal reflux disease without esophagitis; F41.9 Anxiety disorder, unspecified; Z79.899 Other long term (current) drug therapy; Z88.1 Allergy status to other antibiotic agents; Z88.2 Allergy status to sulfonamides; Z91.041 Radiographic dye allergy status; Z87.11 Personal history of peptic ulcer disease; Z80.9 Family history of malignant neoplasm, unspecified
CPT/HCPCS: 88305

== ENCOUNTER 2021-10-09 16:26 | Emergency (ER) | payer OTHER ==
[~2021-10-09] VITALS: Ht 165 cm; Wt 56.8 kg
[2021-10-09 16:35] VITALS: BP 168/108
--- NOTE | 2021-10-09 16:43 | ED Abdominal Pain ---
General Stated Complaint: RIGHT FLANK PAIN Source of Information: Patient Exam Limitations: No Limitations History of Present Illness Date Seen by Provider: Oct 09, 2021 Time Seen by Provider: 16:38 Initial Comments This is a 56 yo female who presented to the ER with c/o right flank pain for the past 12 hours. Pain is constant, sharp and stabbing, rates 10/10. Has not taken anything prior to arrival. No fever, chills, cough, shortness of breath, chest pain. Allergies and Home Medications Allergies Coded Allergies: sulfamethoxazole (Verified Allergy, Mild, 06/08/19) trimethoprim (Verified Allergy, Mild, 06/08/19) Iodinated Contrast Media (Verified Allergy, Unknown, 06/08/19) Sulfa (Sulfonamide Antibiotics) (Verified Allergy, Unknown, 06/08/19) Patient Home Medication List Home Medication List Reviewed: Yes Acyclovir (Acyclovir) 800 Mg Tablet, 800 MG PO 5XD Prescribed by: YESSENIA CROCKETT on 10/09/21 1835 Gabapentin (Gabapentin) 300 Mg/6 Ml Solution, 300 MG PO TID, (Reported) Entered as Reported by: EMMA MATTHEWS on 10/22/20 1340 Lorazepam (Lorazepam) 0.5 Gm Powder, 0.5 GM MC HS, (Reported) Entered as Reported by: EMMA MATTHEWS on 10/22/20 1340 Naproxen Sodium (Aleve) 220 Mg Capsule, 220 MG PO for BREAKTHROUGH PAIN, (Reported) Entered as Reported by: CHANTAL HURD on 06/08/19 1048 Oxycodone HCl/Acetaminophen (Oxycodone-Acetaminophen 5-325) 1 Each Tablet, 1 EACH PO Q4H PRN for PAIN-MODERATE Prescribed by: YESSENIA CROCKETT on 10/09/21 1922 Review of Systems Review of Systems Constitutional: no symptoms reported EENTM: No Symptoms Reported Respiratory: No Symptoms Reported Cardiovascular: No Symptoms Reported Gastrointestinal: See HPI Genitourinary: No Symptoms Reported Skin: see HPI Psychiatric/Neurological: No Symptoms Reported Endocrine: No Symptoms Reported Past Aixilhx-Ltezxu-Wvhgpa Hx Seasonal Allergies Seasonal Allergies: No Past Medical History Surgeries: Yes Hysterectomy, Orthopedic, Tonsillectomy, Tubal Ligation Respiratory: No Cardiac: No 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 0oz. 51.385388fm; 21.30 BMI Method:Stated General Appearance: WD/WN, no apparent distress HEENT: normal ENT inspection, pharynx normal Neck: full range of motion, normal inspection Respiratory: lungs clear, normal breath sounds, no respiratory distress, no accessory muscle use Cardiovascular: regular rate, rhythm, no murmur Gastrointestinal: normal bowel sounds, non tender, soft Extremities: normal range of motion, non-tender, normal inspection, no pedal edema Back: normal inspection, no CVA tenderness, other (right flank tenderness with light palpation ) Neurologic/Psychiatric: no motor/sensory deficits, alert, normal mood/affect, oriented x 3 Skin: normal color, warm/dry; No rash Progress/Results/Core Measures Results/Orders Lab Results Laboratory Tests Test 10/09/21 16:44 10/09/21 17:37 Range/Units White Blood Count 8.8 4.3-11.0 10^3/uL Red Blood Count 5.06 3.80-5.11 10^6/uL Hemoglobin 15.5 11.5-16.0 g/dL Hematocrit 47 35-52 % Mean Corpuscular Volume 93 80-99 fL Mean Corpuscular Hemoglobin 31 25-34 pg Mean Corpuscular Hemoglobin Concent 33 32-36 g/dL Red Cell Distribution Width 12.2 10.0-14.5 % Platelet Count 212 130-400 10^3/uL Mean Platelet Volume 9.6 9.0-12.2 fL Immature Granulocyte % (Auto) 0 % Neutrophils (%) (Auto) 62 42-75 % Lymphocytes (%) (Auto) 27 12-44 % Monocytes (%) (Auto) 9 0-12 % Eosinophils (%) (Auto) 2 0-10 % Basophils (%) (Auto) 1 0-10 % Neutrophils # (Auto) 5.4 1.8-7.8 10^3/uL Lymphocytes # (Auto) 2.3 1.0-4.0 10^3/uL Monocytes # (Auto) 0.8 0.0-1.0 10^3/uL Eosinophils # (Auto) 0.2 0.0-0.3 10^3/uL Basophils # (Auto) 0.1 0.0-0.1 10^3/uL Immature Granulocyte # (Auto) 0.0 0.0-0.1 10^3/uL Sodium Level 138 135-145 MMOL/L Potassium Level 3.6 3.6-5.0 MMOL/L Chloride Level 104 98-107 MMOL/L Carbon Dioxide Level 27 21-32 MMOL/L Anion Gap 7 5-14 MMOL/L Blood Urea Nitrogen 8 7-18 MG/DL Creatinine 0.83 0.60-1.30 MG/DL Estimat Glomerular Filtration Rate 71 BUN/Creatinine Ratio 10 Glucose Level 82 70-105 MG/DL Calcium Level 9.4 8.5-10.1 MG/DL Corrected Calcium 9.1 8.5-10.1 MG/DL Total Bilirubin 0.5 0.1-1.0 MG/DL Aspartate Amino Transf (AST/SGOT) 18 5-34 U/L Alanine Aminotransferase (ALT/SGPT) 14 0-55 U/L Alkaline Phosphatase 73 40-136 U/L Total Protein 7.3 6.4-8.2 GM/DL Albumin 4.4 3.2-4.5 GM/DL Urine Color YELLOW Urine Clarity CLEAR Urine pH 5.5 5-9 Urine Specific [place] 1.010 L 1.016-1.022 Urine Protein NEGATIVE NEGATIVE Urine Glucose (UA) NEGATIVE NEGATIVE Urine Ketones NEGATIVE NEGATIVE Urine Nitrite NEGATIVE NEGATIVE Urine Bilirubin NEGATIVE NEGATIVE Urine Urobilinogen 0.2 < = 1.0 MG/DL Urine Leukocyte Esterase NEGATIVE NEGATIVE Urine RBC (Auto) TRACE-I H NEGATIVE Urine RBC NONE /HPF Urine WBC NONE /HPF Urine Squamous Epithelial Cells RARE /HPF Urine Crystals NONE /LPF Urine Bacteria NEGATIVE /HPF Urine Casts NONE /LPF Urine Mucus NEGATIVE /LPF Urine Culture Indicated NO My Orders Orders - YESSENIA CROCKETT JAVA SOFTWARE DEVELOPER Ct Abd/Pelvis Wo(Kidney Stone) (10/09/21 16:36) Ed Iv/Invasive Line Start (10/09/21 16:36) Ua Culture If Indicated (10/09/21 16:36) Cbc With Automated Diff (10/09/21 16:36) Comprehensive Metabolic Panel (10/09/21 16:36) Ketorolac Injection (Toradol Injection) (10/09/21 16:45) Hydrocodone/Apap 7.5/325 Tab (Lortab 7. (10/09/21 18:30) Acyclovir Capsule/Tablet (Zovirax Caps (10/09/21 18:30) Oxycodone/Acet 10/325mg Tablet (Percocet (10/09/21 19:15) Ondansetron Oral Dissolve Tab (Zofran (10/09/21 19:15) Iv Push Slide Fastener Repairer Ed (10/09/21 ) Medications Given in ED Vital Signs/I&O Progress Progress Note : Progress Note Obtained basic labs and CT abd/pelvis to r/o renal stone. Labs are unremarkable. CT negative for acute pathology. On exam she is very sensitive to light touch. This may represent early shingles. Patient states she has had singles in the past and this does feel similar. States she had to take MS to control her pain last time. Diagnostic Imaging Diagonstic Imaging: CT Plain Films/CT/US/NM/MRI: abdomen, pelvis Comments [facility], [place] NAME: MANUEL CORTES [facility] REC#: [id number] PT STATUS: DEP ER : 1965 PHYSICIAN: YESSENIA CROCKETT APRN ADMIT DATE: 10/09/21/ER Signed Date of Exam:10/09/21 CT ABD/PELVIS WO(KIDNEY STONE) EXAMINATION: CT abdomen and pelvis without contrast. TECHNIQUE: Multiple contiguous axial images were obtained through the abdomen and pelvis without the use of intravenous contrast. All CT scans use one or more of the following dose optimizing techniques: automated exposure control, MA and/or KvP adjustment based on patient size and exam type or iterative reconstruction. HISTORY: Flank pain. COMPARISON: None available. FINDINGS: Limited views of the lower thorax are unremarkable. The liver is normal without focal lesion. There is no biliary ductal dilation. Gallbladder is normal. Pancreas is normal. Spleen is normal. Adrenal glands are normal. The kidneys are normal. There is no hydronephrosis. Urinary bladder is normal. No renal or ureteral stones. Bowel is normal in caliber without obstruction or inflammation. No free fluid or air. No abdominal or pelvic lymphadenopathy. Aorta is normal in caliber without aneurysm. There are no suspicious osseus lesions. IMPRESSION: No renal or ureteral stones. Dictated by: Dictated on workstation # [id number] Dict: 10/09/211704 Trans: 10/09/211948 PJE [id number] Interpreted by: KENNY LYLES MD Electronically signed by: KENNY LYLES MD 10/09/211948 Reviewed: Reviewed by Me Departure Impression Primary Impression: Xu Disposition: HOME, SELF-CARE Condition: Stable Departure-Patient Inst. Decision time for Depature: 18:32 Referrals: [facility]/ (PCP) Primary Care Physician JOHN CASTELLANOS APRN (Family) Primary Care Physician Patient Instructions: Xu (DC) Add. Discharge Instructions: Plan: 1. Take Hydrocodone 5/325mg PO every 4 hours as needed for pain. 2. May take Ibuprofen 600mg every 6 hours or 800mg every 8 hours for pain. 3. Take your Acyclovir as directed 5x per day. 4. Follow up with Dr. Smith this week. 5. Return for any new, concerning, or worsening symptoms. Scripts Oxycodone HCl/Acetaminophen (Oxycodone-Acetaminophen 5-325) 1 Each Tablet 1 EACH PO Q4H PRN for PAIN-MODERATE MDD 6 for 3 Days, #20 TAB 0 Refills Prov: YESSENIA CROCKETT JAVA SOFTWARE DEVELOPER 10/09/21 Acyclovir (Acyclovir) 800 Mg Tablet 800 MG PO 5XD for 7 Days, #35 TAB 0 Refills Prov: YESSENIA CROCKETT JAVA SOFTWARE DEVELOPER 10/09/21 YESSENIA CROCKETT APRN Oct 09, 2021 16:43
[2021-10-09] MEDS ORDERED: KETOROLAC 30 MG/ML VIAL IV ONE (16:45)
[2021-10-09] MEDS ORDERED: KETOROLAC 30 MG/ML VIAL IVP ONE (16:45)
[2021-10-09 16:50] LABS: BASOPHILS # (AUTO) 0.1 10^3/uL (0.0-0.1); BASOPHILS % (AUTO) 1 % (0-10); EOSINOPHILS # (AUTO) 0.2 10^3/uL (0.0-0.3); EOSINOPHILS % (AUTO) 2 % (0-10); HEMATOCRIT 47 % (35-52); HEMOGLOBIN 15.5 g/dL (11.5-16.0); LYMPHOCYTES # (AUTO) 2.3 10^3/uL (1.0-4.0); LYMPHOCYTES % (AUTO) 27 % (12-44); MEAN CORPUSCULAR HEMOGLOBIN 31 pg (25-34); MEAN CORPUSCULAR HGB CONC 33 g/dL (32-36); MEAN CORPUSCULAR VOLUME 93 fL (80-99); MEAN PLATELET VOLUME 9.6 fL (9.0-12.2); MONOCYTES # (AUTO) 0.8 10^3/uL (0.0-1.0); MONOCYTES % (AUTO) 9 % (0-12); NEUTROPHILS # (AUTO) 5.4 10^3/uL (1.8-7.8); NEUTROPHILS % (AUTO) 62 % (42-75); PLATELET COUNT 212 10^3/uL (130-400); WHITE BLOOD COUNT 8.8 10^3/uL (4.3-11.0)
--- NOTE | 2021-10-09 17:11 | Diagnostic Imaging Report ---
EXAMINATION: CT abdomen and pelvis without contrast. TECHNIQUE: Multiple contiguous axial images were obtained through the abdomen and pelvis without the use of intravenous contrast. All CT scans use one or more of the following dose optimizing techniques: automated exposure control, MA and/or KvP adjustment based on patient size and exam type or iterative reconstruction. HISTORY: Flank pain. COMPARISON: None available. FINDINGS: Limited views of the lower thorax are unremarkable. The liver is normal without focal lesion. There is no biliary ductal dilation. Gallbladder is normal. Pancreas is normal. Spleen is normal. Adrenal glands are normal. The kidneys are normal. There is no hydronephrosis. Urinary bladder is normal. No renal or ureteral stones. Bowel is normal in caliber without obstruction or inflammation. No free fluid or air. No abdominal or pelvic lymphadenopathy. Aorta is normal in caliber without aneurysm. There are no suspicious osseus lesions. IMPRESSION: No renal or ureteral stones. Dictated by: Dictated on workstation # [id number]
[2021-10-09 17:18] LABS: ALBUMIN 4.4 GM/DL (3.2-4.5); POTASSIUM 3.6 MMOL/L (3.6-5.0)
[2021-10-09 17:19] LABS: CALCIUM 9.4 MG/DL (8.5-10.1)
[2021-10-09 17:20] LABS: TOTAL PROTEIN 7.3 GM/DL (6.4-8.2)
[2021-10-09 17:22] LABS: BILIRUBIN,TOTAL 0.5 MG/DL (0.1-1.0)
[2021-10-09 17:24] LABS: CREATININE SERUM 0.83 MG/DL (0.60-1.30)
[2021-10-09 17:41] LABS: BILIRUBIN,URINE NEGATIVE (NEGATIVE); CLARITY,URINE CLEAR; COLOR,URINE YELLOW; GLUCOSE, URINE (UA) NEGATIVE (NEGATIVE); KETONES,URINE NEGATIVE (NEGATIVE); LEUKOCYTE ESTERASE ,URINE NEGATIVE (NEGATIVE); NITRITE,URINE NEGATIVE (NEGATIVE); PH,URINE 5.5 (5-9); PROTEIN,URINE NEGATIVE (NEGATIVE)
[2021-10-09 17:48] LABS: BACTERIA,URINE NEGATIVE /HPF; SQUAMOUS EPITHELIAL CELL,UR RARE /HPF
[2021-10-09] MEDS ORDERED: HYDROcodone/APAP 7.5 MG/325 MG (LORTAB, LORCET PLUS) TABLET PO ONE (18:30)
[2021-10-09] MEDS ORDERED: ACYCLOVIR 400 MG TABLET (ZOVIRAX) PO ONE (18:30)
[2021-10-09] MEDS ORDERED: ACYC-112 PO (18:35)
[2021-10-09] MEDS ORDERED: ACHD5005 PO (18:35)
[2021-10-09] MEDS ORDERED: ONDANSETRON 4 MG (ZOFRAN) ORAL DISSOLVE TAB PO ONE (19:15)
[2021-10-09] MEDS ORDERED: oxyCODONE/APAP 10/325MG (PERCOCET 10) TABLET PO ONE (19:15)
[2021-10-09] MEDS ORDERED: OXYC1TAB11 PO (19:21)
== END 2021-10-09 19:27 | disposition home or self-care (01) ==
LOC: EDUNIT# 16:26 → ER 16:29
DX: B02.9 Zoster without complications (principal); F41.9 Anxiety disorder, unspecified; G89.29 Other chronic pain; M54.9 Dorsalgia, unspecified; Z79.891 Long term (current) use of opiate analgesic
CPT/HCPCS: 36415; 74176; 80053; 81000; 85025; 96374

== ENCOUNTER → 2022-09-24 | Outpatient (CLI) | payer OTHER ==
[~2022-09-24] MED LIST changes: +ACHD5005 PO; +ACYC-112 PO; +OXYC1TAB11 PO
--- NOTE | 2022-09-24 15:36 | Diagnostic Imaging Report ---
PROCEDURE: MRI lumbar spine. TECHNIQUE: Multiplanar, multisequence MRI of the lumbar spine was performed without contrast. INDICATION: Back pain. Correlated with the CT abdomen and pelvis performed 10/09/2021, no priors for direct comparison. FINDINGS: Lumbar statures normal. The alignment anatomic. The marrow signal intensity normal. The lower thoracic cord and conus appeared normal. There are mild degenerative changes to the discs, endplates and facets, but no substantial degree of spinal canal stenosis present. No exit nerve compression or significant foraminal narrowing. The lateral recesses patent. IMPRESSION: Mild degenerative changes without significant stenosis, no acute abnormality, normal alignment. Dictated by: Dictated on workstation # [id number]
--- NOTE | 2022-09-24 16:01 | Diagnostic Imaging Report ---
INDICATION: Neuropathy and chronic back pain. COMPARISON: Correlation limited to overlapped levels obtained at an abdominopelvic CT with reconstructions dated 10/09/2021. FINDINGS: The thoracic statures are within normal limits. No suspicious marrow replacement. There is some physiologic wedging at T12, stable, chronic, and incidental. The thoracic spinal cord has a normal volume and normal morphology and a normal signal intensity. No paravertebral mass, hemorrhage, or fluid collection. No acute epidural abnormality. Ligamentous structures are intact. No listhesis. No substantial canal stenosis. No cord compression. No significant foraminal narrowing with mild multilevel mid to lower thoracic spondylosis evidenced by osteophyte disc material, predominantly directed anteriorly. IMPRESSION: Mild degenerative changes result in no significant stenosis. No acute bony pathology. Normal cord. Dictated by: Dictated on workstation # [id number]
== END ==
LOC: RAD 09-10 14:15
PROVIDERS: ATTEND Internal Medicine
DX: M47.25 Other spondylosis with radiculopathy, thoracolumbar region (principal)
CPT/HCPCS: 72146; 72148